=== PATIENT | male | born 1985 | race African-American/Black ===

== ENCOUNTER 2024-04-08 06:21 | Emergency (ER) | payer MEDICAID, MEDICARE ==
[~2024-04-08] VITALS: Ht 177.8 cm; Wt 59.0 kg
[~2024-04-08 06:21] MED LIST: no meds
[2024-04-08 06:26] VITALS: O2SAT 99
[2024-04-08] MEDS: MORPHINE SULFATE 4 MG/ML INJ (FOR IV/IM USE) IV STA (07:06)
[2024-04-08] MEDS: SODIUM CHLORIDE 0.9% 1,000 ML IV ONE ×2 (07:06→09:42)
[2024-04-08 07:10] LABS: BASOPHILS % 0.7 % (0.0-2.0); EOSINOPHILS % 0.3 % (0.0-5.0); HEMATOCRIT. 31.4 % (42.0-52.0); HEMOGLOBIN. 10.7 g/dL (14.0-18.0); LYMPHOCYTES % 32.2 % (20.0-50.0); MEAN CORPUSCULAR HEMOGLOBIN 39.2 pg (28.0-32.0); MEAN CORPUSCULAR HGB CONC 34.2 g/dL (31.0-37.0); MEAN CORPUSCULAR VOLUME 114.6 fL (80.0-94.0); MEAN PLATELET VOLUME 7.5 fl (7.4-10.4); MONOCYTES % 7.3 % (2.0-8.0); NEUTROPHILS % 59.5 % (40.0-76.0); PLATELET 444 x1000/uL (130-400); RED BLOOD CELL COUNT 2.74 mill/uL (4.7-6.1); RED CELL DISTRIBUTION WIDTH 16.7 % (11.6-14.6); WHITE BLOOD COUNT 10.3 x1000/uL (4.5-11.0)
[2024-04-08 07:14] LABS: ADD RBC MORPHOLOGY YES; DIFFERENTIAL COMMENT 1
[2024-04-08 07:17] LABS: CHLORIDE 105 mEq/L (98-107); POTASSIUM 3.5 mEq/L (3.5-5.1); SODIUM 141 mEq/L (136-145)
[2024-04-08 07:18] LABS: CARBON DIOXIDE 22 mEq/L (21-32)
[2024-04-08 07:19] LABS: CALCIUM 9.6 mg/dL (8.7-10.4)
[2024-04-08 07:23] LABS: CREATININE 0.7 mg/dL (0.6-1.3); GLUCOSE 97 mg/dL (70-105); UREA NITROGEN BLOOD 10 mg/dL (9-23)
[2024-04-08 07:27] LABS: PROTHROMBIN TIME 10.8 sec (9.6-11.0)
[2024-04-08] MEDS: MORPHINE SULFATE 4 MG/ML INJ (FOR IV/IM USE) IV ONE ×4 (07:30→09:46)
[2024-04-08] MEDS: PHENYLEPHRINE 100MCG/ML 10ML (PRIAPISM) MC ONE (08:18)
[2024-04-08] MEDS: LIDOCAINE HCL/PF 1% 10 MG/ML 5ML VIAL INFIL ONE (08:18)
[2024-04-08 08:44] LABS: ANISOCYTOSIS 2+
[2024-04-08 08:45] LABS: PLATELET ESTIMATE INCREASED
[2024-04-08 09:00] VITALS: TEMP 36.72516; O2SAT 99
[2024-04-08 09:46] VITALS: BP 122/67; PULSE 75; RESP 17
[2024-04-08] MEDS: ONDANSETRON HCL 4MG/2ML INJ IV ONE ×2 (10:02→10:26)
[2024-04-08] MEDS ORDERED: TOPUD PO (10:08)
== END 2024-04-08 10:28 | disposition home or self-care (01) ==
LOC: ER 06:21
DX: N48.30 Priapism, unspecified (principal)
CPT/HCPCS: 80048; 85025; 85610; 36415; 96361; 96374; 96375; 96376; 99284; J3490; J2405; J2270; J7030; Z7610 ×3